=== PATIENT | male | born 1940 | race Caucasian/White ===

== ENCOUNTER 2020-04-04 23:53 | Inpatient (IN) | payer BC, MEDICARE ==
[2020-04-05 04:16] VITALS: BMI 19.7
[2020-04-05] MEDS ORDERED: Metoprolol Tartrate 50 MG TAB PO SCH (04:30)
[2020-04-05] MEDS ORDERED: Acetaminophen 325 MG TAB PO PRN (08:34)
[2020-04-05] MEDS ORDERED: Senokot S 8.6-50 MG TAB PO PRN (08:34)
[2020-04-05] MEDS ORDERED: Calcium Carbonate 500 MG ChewTAB PO PRN (08:34)
--- NOTE | 2020-04-05 08:42 | PDOC.HHP ---
Hospitalist HPI - History of Present Illness AMS - Transfer from [facility] History of Present Illness: Patient is an 80-year-old male who presents with altered mental status along with left knee swelling. Over the past 3 days he developed left knee swelling and warmth. He was unable to bear weight on left leg. Over the last 2 days he developed confusion. He has been feeling gen weak and fatigued. No fevers, cough , abdominal pain, dysuria, neck pain, shortness of breath, trauma or falls, or any other complaints. Per son, he has been sitting on chair x 2 days. His speech was lethargic with garbled speech. Son brought him to ER. His mentation started to improve after IVF at ER. In ER -arthrocentesis was done just concerning for gout vs septic arthritis of the left knee. No gas on x-ray. Patient will be treated for possible septic arthritis while awaiting cultures. Chest x-ray negative. He was found to have WBC of 20 k with elevated CRP. He was transferred here for neurology eval. NIH in ER was 5. COVID negative. I reviewed records from & in detail. ED Course: Initial Vital Signs: BP: (!) 179/91, Pulse: 100, Temperature: 99.6 F (37.6 C), Resp: 19, Weight: 137 lb (62.1 kg), SpO2: 97 % Vitals: BP: 168/68, Pulse: 100, Temperature: 99.6 F (37.6 C), Resp: 19, Weight: 137 lb (62.1 kg), SpO2: 97 % Medications: Orders Placed This Encounter Medications lidocaine-EPINEPHrine (XYLOCAINE W/EPI) 1 %-1:100,000 injection 3 mL 0.9% sodium chloride (NaCl) (NS) infusion 500 mL Order Specific Question: Reason for Hydration Answer: Dehydration 0.9% sodium chloride (NaCl) (NS) infusion 1,000 mL Order Specific Question: Reason for Hydration Answer: Dehydration cefTRIAXone (ROCEPHIN) 1 g in sodium chloride 0.9 % 50 mL IVPB-MBP vancomycin (VANCOCIN) 1,500 mg in 0.9% sodium chloride (NaCl) 300 mL IVPB aspirin chewable tablet 324 mg dexamethasone sod phos (DECADRON) 10 mg/mL injection 10 mg colchicine tablet 1.2 mg Hospitalist ROS - Review of Systems Constitutional: reports: weakness, malaise Cardiovascular: denies: chest pain, palpitations, orthopnea, paroxysmal noc. dyspnea, edema, light headedness, other Gastrointestinal: denies: nausea, vomiting, abdominal pain, diarrhea, constipation, melena, hematochezia, other Genitourinary: denies: dysuria, frequency, incontinence, hematuria, retention, other All other systems reviewed; all pertinent +/- noted in HPI/Subj - Medication Medications: Home meds: Aspirin [Ecotrin Low Strength] 81 mg PO DAILY 04/05/20 Gabapentin [Neurontin] 300 mg PO TID 04/05/20 Glucosamine Sulfate 500 mg PO DAILY 04/05/20 Lisinopril [Zestril] 2.5 mg PO DAILY 04/05/20 Metoprolol Tartrate [Lopressor] 50 mg PO BID-WM 04/05/20 Multivit-Min/FA/Lycopen/Lutein [Centrum Silver Tablet] 1 tab PO DAILY Omeprazole 20 mg PO BID 04/05/20 Simvastatin [Zocor] 20 mg PO HS 04/05/20 Hospitalist History - Past Medical History Source: patient, family Other Medical History: Past Medical History: HTN HLD Carotid stenosis Past Surgical History: APPENDECTOMY CAROTID STENT ROTATOR CUFF REPAIR VASECTOMY Allergies: Amlodipine Benazepril Social History: Never Smoker Drinks 14 Shots of liquor & 6 Cans of beer every week per ER recored Family history: No premature CAD DNR - verified with son Ralf [id number] - DPOA - Exam General Appearance: NAD, ill appearing Eye: PERRL, anicteric sclera ENT: normocephalic atraumatic, no oropharyngeal lesions, moist mucosa Neck: supple, symmetric, no JVD, no thyromegaly Heart: RRR, no gallops, no rubs, normal peripheral pulses Respiratory: no wheezes, no rales, no ronchi, normal chest expansion Gastrointestinal: soft, non-tender, non-distended, normal bowel sounds, no guarding, no rigidity Extremities: no cyanosis, no clubbing Extremities - other findings: Left knee tenderness/warmth. Congenital deformity of left forearm Neurological: cranial nerve grossly intact, normal sensation to touch, no focal deficits Psychiatric: normal affect, oriented to person, oriented to place, oriented to time, somnolent Psychiatric - other findings: slow to respond Hospitalist Results - Labs Result Diagrams: 04/05/20 08:58 04/05/20 08:58 Additional comment: Labs: Recent Results (from the past 24 hour(s)) Gram Stain Collection Time: 04/04/20 7:40 PM Result Value Ref Range GRAM STAIN SMALL AMOUNT WHITE BLOOD CELLS NO ORGANISMS SEEN Ammonia Collection Time: 04/04/20 7:46 PM Result Value Ref Range AMMONIA 19 11 - 35 umol/L CBC with Differential Collection Time: 04/04/20 7:46 PM Result Value Ref Range WBC 20.7 (H) 4.8 - 10.8 10*9/L RBC 4.58 (L) 4.70 - 6.10 10*12/L HEMOGLOBIN 15.0 14.0 - 18.0 g/dL HEMATOCRIT 44.4 42.0 - 52.0 % MCV 96.9 (H) 80.0 - 94.0 fL MCH 32.8 27.0 - 34.5 pg MCHC 33.8 32.0 - 36.5 g/dL RDW 12.4 11.0 - 15.0 % PLATELET COUNT 334 150 - 450 10*9/L MPV 10.1 7.4 - 12.0 fL GRAN % 84 % LYMPH % 6 % MONO % 9 % EOS % 0 % BASO % 0 % NRBC 0.0 0.0 - 0.9 /100 WBCs GRAN # 17.34 (H) 1.92 - 8.64 10*9/L LYMPH # 1.32 0.72 - 4.32 10*9/L MONO # 1.84 (H) 0.00 - 1.08 10*9/L EOS # 0.02 0.00 - 0.76 10*9/L BASO # 0.06 0.00 - 0.22 10*9/L ETOH Collection Time: 04/04/20 7:46 PM Result Value Ref Range ALCOHOL (SERUM/PLASMA) <10 0 mg/dL Creatine Kinase Collection Time: 04/04/20 7:46 PM Result Value Ref Range CK 1,386 (H) 0 - 225 [IU]/L Comprehensive Metabolic Panel Collection Time: 04/04/20 7:46 PM Result Value Ref Range GLUCOSE 122 (H) 70 - 100 mg/dL BUN 31 (H) 8 - 27 mg/dL CREATININE 1.63 (H) 0.60 - 1.60 mg/dL SODIUM 140 136 - 145 meq/L POTASSIUM 3.8 3.5 - 5.3 meq/L CHLORIDE 104 97 - 111 meq/L CARBON DIOXIDE 24 23 - 31 meq/L CALCIUM 9.7 8.6 - 10.5 mg/dL BILIRUBIN, TOTAL 1.2 0.2 - 1.2 mg/dL ALKALINE PHOSPHATASE 76 34 - 130 [IU]/L SGOT (AST) 42 (H) 0 - 40 [IU]/L SGPT (ALT) 29 0 - 68 [IU]/L PROTEIN, TOTAL 7.8 6.0 - 8.0 g/dL ALBUMIN 3.7 3.2 - 4.6 g/dL Procalcitonin Collection Time: 04/04/20 7:46 PM Result Value Ref Range PROCALCITONIN 0.71 (AB) <0.10 ng/mL C-Reactive Protein, High Sensitivity Collection Time: 04/04/20 7:46 PM Result Value Ref Range H. S. CRP 306.5 (AB) mg/L Lactic Acid, Plasma Collection Time: 04/04/20 7:46 PM Result Value Ref Range LACTIC ACID 1.5 0.5 - 2.0 mmol/L GFR-Est. Glomerular Filtration Rate Collection Time: 04/04/20 7:46 PM Result Value Ref Range NON-AFR. AMER. EGFR 39 (AB) AFR. AMER. EGFR 45 (AB) Uric Acid Collection Time: 04/04/20 7:46 PM Result Value Ref Range URIC ACID 5.6 2.4 - 7.9 mg/dL Coronavirus (CoVID-19), ODALYS Collection Time: 04/04/20 8:09 PM Result Value Ref Range CORONAVIRUS COVID-19 NOT DETECTED UDS Collection Time: 04/04/20 8:25 PM Result Value Ref Range AMPHETAMINE, LAB NEGATIVE ng/mL BARBITURATES NEGATIVE ng/mL BENZODIAZEPINES NEGATIVE ng/mL COCAINE NEGATIVE ng/mL OPIATES NEGATIVE ng/mL PHENCYCLIDINE NEGATIVE ng/mL [id number] NEGATIVE ng/mL ECSTASY NEGATIVE ng/mL Urinalysis, Routine Collection Time: 04/04/20 8:25 PM Result Value Ref Range COLOR, UA YELLOW YELLOW APPEARANCE CLEAR CLEAR-SLCLOUDY SPECIFIC GRAVITY, URINE 1.025 1.005 - 1.030 PH, UA 6.5 5.0 - 8.0 PROTEIN >=300 (AB) NEG,TRACE mg/dL GLUCOSE, UA NEG NEG KETONES 15 (AB) NEG BILIRUBIN, UA NEG NEG BLOOD, UA LARGE (AB) NEG NITRITE NEG NEG UROBILINOGEN 1.0 <2 [IU]/dL LEUKOCYTE ESTERASE NEG NEG RBC, URINE 1-2 0 - 2 /[HPF] WBC, URINE 0 0 - 2 /[HPF] MUCOUS OCC (AB) NONE /[HPF] SQUAMOUS EPITHEIAL RARE NONE, OCC /[HPF] BACTERIA FEW (AB) NONE /[HPF] Synovial Fluid Analysis Collection Time: 04/04/20 9:00 PM Result Value Ref Range SOURCE, SYN LEFT KNEE VOLUME, SYN 20.0 mL COLOR, SYN ORANGE (AB) BLOODY NO CLARITY, SYN OPAQUE (AB) VISCOSITY DECREASED (AB) RBC COUNT, SYN 10,000 /mcL WBC COUNT, SYN 13,900 /mcL SEGMENTED NEUTROPHILS, SYN 92 (H) 0 - 25 % MONONUCLEAR, SYN 8 % TOTAL CELLS COUNTED, SYN 100 CELLS CRYSTALS PRESENT (AB) BIREFRINGENCE NEGATIVE (AB) Radiology: CT Head wo Contrast Final Result IMPRESSION: No acute abnormality. Chronic small vessel ischemic changes. DICTATED 04/04/2020 20:48:36 BY:[id number] Hamilton Anthony [place] TRANSCRIBED 04/04/2020 20:48:36 BY: SIGNED 04/04/2020 20:51:44 BY:[id number] [facility] XR Knee 3 Views Right Final Result IMPRESSION: 1. No acute osseous abnormality the left knee DICTATED 04/04/2020 20:40:04 BY:[id number] Yasir Tarik TRANSCRIBED 04/04/2020 20:40:04 BY: SIGNED 04/04/2020 20:40:40 BY:[id number] [employer] Tarik XR Knee 3 Views Left Final Result IMPRESSION: 1. No acute osseous abnormality of the right knee DICTATED 04/04/2020 20:40:45 BY:[id number] Yasir Tarik TRANSCRIBED 04/04/2020 20:40:45 BY: SIGNED 04/04/2020 20:41:40 BY:[id number] [employer] Tarik XR Chest 1 View Final Result Impression: Unremarkable exam. - EKG Interpretation EKG: Reviewed by me - sinus rhythm - Radiology Interpretation CT scan - head Status: image reviewed by me Additional Comment: No acute process. Other Additional Comment: Knee XR - no fractures Hospitalist H&P A/P - Plan Plan: Toxic metabolic and encephalopathy - multifactorial Acute kidney injury Left knee swelling with crystals suspected gout. septic arthritis less likely Acute kidney injury due to dehydration Hypertension History of carotid stenosis Rhabdomyolysis Hyperlipidemia DO NOT RESUSCITATE Plan: Patient is currently admitted to medical floor CT brain was negative for acute findings. His mentation is gradually improving. Cont IV hydration Empiric Atbx - IV vancomycin and meropenem Monitor vancomycin level Await culture report from [facility] Consult neurology and infectious disease Ortho input for possible septic arthritis Resume selected home medications Hold MATT inhibitor due to acute kidney injury Hold statins due to rhabdomyolysis Physical therapy consultation The plan was discussed with the son in detail. HHC at md PT/OT
[2020-04-05] MEDS ORDERED: Meropenem 1 GM in Sodium Chloride 0.9% 100 ML IVPB SCH (08:45)
[2020-04-05] MEDS ORDERED: Prevnar 13-Val Conj/PF 0.5 ML SYRINGE IM ONE (09:00)
[2020-04-05] MEDS ORDERED: Famotidine 20 MG TAB PO SCH (09:00)
[2020-04-05 09:25] LABS: #Lymphocytes 0.8 thou/uL (1.20-3.40); #Monocytes 0.5 thou/uL (0.11-0.59); #Neutrophils 12.3 thou/uL (1.40-6.50); %Basophils 0.1 % (0.0-1.0); %Eosinophils 0.1 % (0.0-10.0); %Lymphocytes 5.9 % (21.0-51.0); %Monocytes 3.4 % (0.0-10.0); %Neutrophils 90.6 % (42.0-75.0); Hemoglobin 13.4 g/dL (14.0-18.0); Mean Corpuscular HGB CONC 32.5 g/dL (32.0-36.0); Mean Corpuscular Hemoglobin 33.3 pg (27.0-31.0); Platelet Count 285 thou/uL (130-400); RBC Distribution Width 11.4 % (11.5-14.5); Red Blood Cell (RBC) Count 4.03 mill/uL (4.70-6.10); White Blood Cell (WBC) Count 13.6 thou/uL (4.8-10.8)
[2020-04-05 09:29] LABS: Lactic Acid 0.9 mmol/L (0.5-2.2)
[2020-04-05] MEDS ORDERED: MEROPENEM 1 GM/50 ML 1 GM in Premix Bag 1 BAG IVPB SCH ×2 (09:30→12:00)
[2020-04-05 09:34] LABS: ALT (SGPT) 28 U/L (8-55); AST (SGOT) 37 U/L (5-34); Alkaline Phosphatase 68 U/L (40-110); Anion Gap 13 mmol/L (10-20); BUN (Urea Nitrogen) 37 mg/dL (8.4-25.7); Bilirubin, Total 0.7 mg/dL (0.2-1.2); CK (CPK) 707 U/L (30-200); CRP (Inflammatory) 26.67 mg/dL (= or < 0.5); Calc. Creatinine Clearance 31 mL/min (70-130); Calcium 8.4 mg/dL (7.8-10.44); Carbon Dioxide 21 mmol/L (23-31); Chloride 107 mmol/L (98-107); Estimated GFR-MDRD 41; Globulin 3.3 g/dL (2.4-3.5); Glucose 145 mg/dL (83-110); Magnesium 2.5 mg/dL (1.6-2.6); Phosphorus 3.8 mg/dL (2.3-4.7); Potassium 4.2 mmol/L (3.5-5.1); Protein, Total 6.3 g/dL (5.8-8.1); Sodium 137 mmol/L (136-145)
[2020-04-05 09:43] LABS: Troponin I 0.034 ng/mL (< 0.028)
--- NOTE | 2020-04-05 10:09 | ULT ---
EXAM: Bilateral lower extremity venous Doppler US HISTORY: bilateral lower extremity edema and pain FINDINGS: Grayscale, color-flow, Doppler evaluation, spectral analysis of the bilateral lower extremities venou s structures is performed with 2-D imaging. The bilateral common femoral, superficial femoral, popliteal, posterior tibial, proximal greater saphenous and profunda femoral veins are imaged. There is normal luminal compressibility, flow, and augmentation in the visualized deep venous structu res of the bilateral lower extremities. IMPRESSION: No evidence of a deep vein thrombosis in either lower extremity.
[2020-04-05] MEDS ORDERED: Vancomycin 1 GM in Premix Bag 1 BAG IVPB SCH (11:00)
[2020-04-05] MEDS ORDERED: Dextrose 5 %-0.45 % NaCl 1,000 ML IV SCH (11:30)
--- NOTE | 2020-04-05 12:49 | CON ---
NEUROLOGY CONSULTATION DATE OF CONSULTATION: 04/05/2020 REASON FOR CONSULTATION: Altered mental status, transferred from [facility]. HISTORY OF PRESENT ILLNESS: Mr. Isabel Wynne is an 80-year-old male with history significant for hypertension, hyperlipidemia, carotid artery stenosis status post stent, transferred from [facility] because of altered mental status associated with left knee swelling. According to the patient, for the last 3 days, he has swelling of the left knee with warmth and was unable to bear weight on his left leg. However, since the last 2 days, he also developed confusion and generalized weakness, but denies nausea, vomiting, focal weakness, focal paresthesias, headache, chest pain, abdominal pain, or loss of consciousness or loss of vision. Per son, he has been sitting in the chair and his speech was garbled and he was lethargic, so he was brought to the emergency room at [facility], where arthrocentesis was done because there was a concern about gout of the left knee , and then there was a concern about possible cellulitis, so he was treated for possible cellulitis and was transferred here to Neurology for further evaluation of altered mental status. REVIEW OF SYSTEMS: All 10 systems were reviewed and were negative except the positive and negative mentioned in the HPI. HOME MEDICATIONS: 1. Aspirin 81 mg daily. 2. Gabapentin 300 mg three times a day. 3. Glucosamine sulfate 500 mg twice daily. 4. Lisinopril 2.5 mg p.o. daily. 5. Metoprolol 50 mg twice daily. 6. Multivitamin one tablet daily. 7. Centrum Silver one tablet p.o. daily. 8. Omeprazole 20 mg twice daily. 9. Simvastatin 20 mg daily. PAST MEDICAL HISTORY: Hypertension, hyperlipidemia, carotid artery stenosis. PAST SURGICAL HISTORY: Appendectomy, carotid stenting, rotator cuff repair, vasectomy. ALLERGIES: AMLODIPINE AND BENAZEPRIL. SOCIAL HISTORY: The patient denies smoking. Drinks 14 shots of liquor and 6 cans of beer every week according to the records. FAMILY HISTORY: No family history of coronary artery disease. PHYSICAL EXAMINATION: 140/80 66 16 GENERAL APPEARANCE: NAD. HEENT: Normocephalic and atraumatic. CVS: Regular rate and rhythm. CHEST: Clear. ABDOMEN: Soft. NECK: Supple. NEUROLOGIC: Mental status, the patient is alert and oriented to person, place, and year. Speech is clear. Motor; muscle, tone, and bulk are normal. Strength, moving all 4 extremities equally and symmetrically. Sensory, intact. Cerebellar, finger-nose testing intact. Gait deferred due to the patient's safety reason. Cranial nerves 2 through 12 intact. DATA REVIEWED: I reviewed the labs, which were significant for anemia, hemoglobin of 13.4, hematocrit 41.3, and WBCs were 13.6. He also had acute kidney injury with BUN of 37 and creatinine of 1.62, and hyperglycemia at 145. EKG showed normal sinus rhythm. Head CT reviewed, which was negative for acute intracranial pathology. 04/05/20 08:58 Additional comment: Labs: Recent Results (from the past 24 hour(s)) Gram Stain Collection Time: 04/04/20 7:40 PM Result Value Ref Range GRAM STAIN SMALL AMOUNT WHITE BLOOD CELLS NO ORGANISMS SEEN Ammonia Collection Time: 04/04/20 7:46 PM Result Value Ref Range AMMONIA 19 11 - 35 umol/L CBC with Differential Collection Time: 04/04/20 7:46 PM Result Value Ref Range WBC 20.7 (H) 4.8 - 10.8 10*9/L RBC 4.58 (L) 4.70 - 6.10 10*12/L HEMOGLOBIN 15.0 14.0 - 18.0 g/dL HEMATOCRIT 44.4 42.0 - 52.0 % MCV 96.9 (H) 80.0 - 94.0 fL MCH 32.8 27.0 - 34.5 pg MCHC 33.8 32.0 - 36.5 g/dL RDW 12.4 11.0 - 15.0 % PLATELET COUNT 334 150 - 450 10*9/L MPV 10.1 7.4 - 12.0 fL GRAN % 84 % LYMPH % 6 % MONO % 9 % EOS % 0 % BASO % 0 % NRBC 0.0 0.0 - 0.9 /100 WBCs GRAN # 17.34 (H) 1.92 - 8.64 10*9/L LYMPH # 1.32 0.72 - 4.32 10*9/L MONO # 1.84 (H) 0.00 - 1.08 10*9/L EOS # 0.02 0.00 - 0.76 10*9/L BASO # 0.06 0.00 - 0.22 10*9/L ETOH Collection Time: 04/04/20 7:46 PM Result Value Ref Range ALCOHOL (SERUM/PLASMA) <10 0 mg/dL Creatine Kinase Collection Time: 04/04/20 7:46 PM Result Value Ref Range CK 1,386 (H) 0 - 225 [IU]/L Comprehensive Metabolic Panel Collection Time: 04/04/20 7:46 PM Result Value Ref Range GLUCOSE 122 (H) 70 - 100 mg/dL BUN 31 (H) 8 - 27 mg/dL CREATININE 1.63 (H) 0.60 - 1.60 mg/dL SODIUM 140 136 - 145 meq/L POTASSIUM 3.8 3.5 - 5.3 meq/L CHLORIDE 104 97 - 111 meq/L CARBON DIOXIDE 24 23 - 31 meq/L CALCIUM 9.7 8.6 - 10.5 mg/dL BILIRUBIN, TOTAL 1.2 0.2 - 1.2 mg/dL ALKALINE PHOSPHATASE 76 34 - 130 [IU]/L SGOT (AST) 42 (H) 0 - 40 [IU]/L SGPT (ALT) 29 0 - 68 [IU]/L PROTEIN, TOTAL 7.8 6.0 - 8.0 g/dL ALBUMIN 3.7 3.2 - 4.6 g/dL Procalcitonin Collection Time: 04/04/20 7:46 PM Result Value Ref Range PROCALCITONIN 0.71 (AB) <0.10 ng/mL C-Reactive Protein, High Sensitivity Collection Time: 04/04/20 7:46 PM Result Value Ref Range H. S. CRP 306.5 (AB) mg/L Lactic Acid, Plasma Collection Time: 04/04/20 7:46 PM Result Value Ref Range LACTIC ACID 1.5 0.5 - 2.0 mmol/L GFR-Est. Glomerular Filtration Rate Collection Time: 04/04/20 7:46 PM Result Value Ref Range NON-AFR. AMER. EGFR 39 (AB) AFR. AMER. EGFR 45 (AB) Uric Acid Collection Time: 04/04/20 7:46 PM Result Value Ref Range URIC ACID 5.6 2.4 - 7.9 mg/dL Coronavirus (CoVID-19), ODALYS Collection Time: 04/04/20 8:09 PM Result Value Ref Range CORONAVIRUS COVID-19 NOT DETECTED UDS Collection Time: 04/04/20 8:25 PM Result Value Ref Range AMPHETAMINE, LAB NEGATIVE ng/mL BARBITURATES NEGATIVE ng/mL BENZODIAZEPINES NEGATIVE ng/mL COCAINE NEGATIVE ng/mL OPIATES NEGATIVE ng/mL PHENCYCLIDINE NEGATIVE ng/mL [id number] NEGATIVE ng/mL ECSTASY NEGATIVE ng/mL Urinalysis, Routine Collection Time: 04/04/20 8:25 PM Result Value Ref Range COLOR, UA YELLOW YELLOW APPEARANCE CLEAR CLEAR-SLCLOUDY SPECIFIC GRAVITY, URINE 1.025 1.005 - 1.030 PH, UA 6.5 5.0 - 8.0 PROTEIN >=300 (AB) NEG,TRACE mg/dL GLUCOSE, UA NEG NEG KETONES 15 (AB) NEG BILIRUBIN, UA NEG NEG BLOOD, UA LARGE (AB) NEG NITRITE NEG NEG UROBILINOGEN 1.0 <2 [IU]/dL LEUKOCYTE ESTERASE NEG NEG RBC, URINE 1-2 0 - 2 /[HPF] WBC, URINE 0 0 - 2 /[HPF] MUCOUS OCC (AB) NONE /[HPF] SQUAMOUS EPITHEIAL RARE NONE, OCC /[HPF] BACTERIA FEW (AB) NONE /[HPF] Synovial Fluid Analysis Collection Time: 04/04/20 9:00 PM Result Value Ref Range SOURCE, SYN LEFT KNEE VOLUME, SYN 20.0 mL COLOR, SYN ORANGE (AB) BLOODY NO CLARITY, SYN OPAQUE (AB) VISCOSITY DECREASED (AB) RBC COUNT, SYN 10,000 /mcL WBC COUNT, SYN 13,900 /mcL SEGMENTED NEUTROPHILS, SYN 92 (H) 0 - 25 % MONONUCLEAR, SYN 8 % TOTAL CELLS COUNTED, SYN 100 CELLS CRYSTALS PRESENT (AB) BIREFRINGENCE NEGATIVE (AB) Radiology: CT Head wo Contrast Final Result IMPRESSION: No acute abnormality. Chronic small vessel ischemic changes. DICTATED 04/04/2020 20:48:36 BY:[id number] Lisa Cruz [place] TRANSCRIBED 04/04/2020 20:48:36 BY: SIGNED 04/04/2020 20:51:44 BY:[id number] Lisa Cruz [place] XR Knee 3 Views Right Final Result IMPRESSION: 1. No acute osseous abnormality the left knee DICTATED 04/04/2020 20:40:04 BY:[id number] Yasir Tarik TRANSCRIBED 04/04/2020 20:40:04 BY: SIGNED 04/04/2020 20:40:40 BY:[id number] Yasir Tarik XR Knee 3 Views Left Final Result IMPRESSION: 1. No acute osseous abnormality of the right knee DICTATED 04/04/2020 20:40:45 BY:[id number] Yasir Tarik TRANSCRIBED 04/04/2020 20:40:45 BY: SIGNED 04/04/2020 20:41:40 BY:[id number] Yasir Tarik XR Chest 1 View Final Result Impression: Unremarkable exam. ASSESSMENT AND PLAN: Mr. Ricci Hall is consulted for altered mental status. Altered mental status seems to be multifactorial secondary to toxic metabolic encephalopathy due to acute kidney injury versus infectious etiology due to left knee swelling with concern about septic arthritis. The patient has no focal deficits, so intracranial process seems less likely. Head CT reviewed, which was negative for acute intracranial pathology. EEG was completed . Results pending. Continue neuro checks every 4 hours. Continue aspirin and statin for secondary stroke prevention since the patient has risk factors. MRI of the brain when stable. PT/OT/Speech. Continue home medications, strict control of blood pressure and blood glucose. Continue medical management per Primary Team. We will continue to follow. Thank you for the consult. Job ID: [id number] [facility]al[facility]
[2020-04-05] MEDS ORDERED: Aspirin 81 mg Enteric Coated Tablet PO SCH (13:00)
[2020-04-05 13:37] LABS: Troponin I 0.023 ng/mL (< 0.028)
[2020-04-05] MEDS: Folic Acid 1 MG TAB PO SCH (13:50)
[2020-04-05] MEDS: Thiamine 100 MG TAB PO SCH (13:50)
[2020-04-05] MEDS: Acetaminophen 325 MG TAB PO SCH ×2 (13:50→21:06)
[2020-04-05] MEDS: Multivit, Therapeutic 1 TAB PO SCH (13:50)
--- NOTE | 2020-04-05 14:34 | CON ---
DATE OF CONSULTATION: 04/05/2020 REASON FOR CONSULTATION: Left knee inflammatory arthropathy. 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 He lives with a girlfriend and lives in [place]. On the day of admission, he developed confusional state, so he was brought in, given broad-spectrum coverage. An arthrocentesis was done at [facility] in [place]. He was transferred to this hospital. Right now, he is awake, alert, oriented. Eating lunch. Denies headaches. No shortness of breath. No abdominal pain or diarrhea. No genitourinary symptoms. The pain in the left knee has improved after arthrocentesis. PAST MEDICAL HISTORY: 1. Hyperlipidemia. 2. Hypertension. SURGICAL HISTORY: 1. Endarterectomy. 2. Vasectomy. 3. Appendectomy. 4. Rotator cuff repair. SOCIAL HISTORY: Drinks daily. Lives with girlfriend. No smoking. ALLERGIES: NORVASC AND BENAZEPRIL. MEDICATIONS: 1. Aspirin. 2. Dextrose. 3. Meropenem. 4. Vancomycin. 5. Thiamine. PHYSICAL EXAMINATION: VITAL SIGNS: He has been afebrile, BP 170/75, pulse 63, respirations 16, and O2 saturation 96. GENERAL: Appears in no distress. SKIN: His left knee is painted with Betadine for the previous procedure. Peripheral IV access. Voiding in the diaper. No lymphadenopathy. HEENT: Ocular movements conjugate. Oral cavity with numerous missing teeth. NECK: Supple. No jugular vein distention. LUNGS: Symmetric, clear breath sounds. HEART: S1 and S2. Regular rate. No S3 or S4. ABDOMEN: Soft, not distended or tender. No ascites. No bladder distention. No genital abnormalities. EXTREMITIES: The left knee is not as swollen as previously. The range of motion is a bit improved. Pulses are 1+ in dorsalis pedis. NEUROLOGIC: Awake and oriented. Little bit sluggish with responses, but he follows commands, able to feed himself. LABORATORY DATA: White cell count 13.6, hemoglobin 13.4, platelets 285, and 90% neutrophils. Creatinine 1.62 with no prior visits to compare. Liver profile with AST 37, ALT 28, and alkaline phosphatase 68. CK 707. CRP 26. Albumin 3.0. We reviewed the data from [facility] in [place] and he did have arthrocentesis and it showed 13,000 wbc's in the synovial fluid, was positive for uric acid or monosodium urate crystals in the sample. Venogram done here was negative for DVT. ASSESSMENT: 1. Hypertension. 2. Excessive alcoholic beverage use. 3. Monoarticular gout, left knee. PLAN: At this point, discontinue antimicrobials and switch him to oral colchicine. Continue monitoring cultures until final results are provided. Job ID: [id number]
--- NOTE | 2020-04-05 15:34 | EEG ---
DATE OF SERVICE: 04/05/2020 ATTENDING PHYSICIAN: Ni St MD This EEG was performed using 24-channel [employer] video digital EEG machine with 24- disk electrodes. This was an extended 2 hours 7 minutes of inpatient video EEG recording. Digital analysis of the EEG was done for spike and seizure detection , which revealed no abnormalities. BACKGROUND: The posterior background rhythm is 8.5 to 9 hertz as well as the background rhythm attenuates with eye opening and enhances with eye closure. HYPERVENTILATION: Not performed. PHOTIC STIMULATION: No significant response seen with photic stimulation. SLEEP: Drowsiness and sleep are observed. EEG DIAGNOSIS: Occasional irregular theta activity seen during the recording. CLINICAL INTERPRETATION: This EEG is consistent with mild generalized nonspecific cerebral dysfunction. No ictal or interictal epileptiform abnormalities seen during the recording. Job ID: [id number] [facility]
[2020-04-05] MEDS ORDERED: Lorazepam 0.5 MG TAB PO PRN (16:43)
[2020-04-05] MEDS: Gabapentin 100 MG CAP PO SCH (21:06)
[2020-04-05] MEDS: Colchicine 0.6 MG TAB PO SCH (21:06)
[2020-04-05] MEDS: Metoprolol Tartrate 50 MG TAB PO SCH (21:06)
[2020-04-05] MEDS: Dextrose 5 %-0.45 % NaCl 1,000 ML IV SCH (23:53)
[2020-04-06] MEDS: hydrALAZINE 20 MG/ML VIAL SLOW IVP PRN (04:32)
[2020-04-06 06:08] LABS: ALT (SGPT) 66 U/L (8-55); AST (SGOT) 72 U/L (5-34); Albumin 3.1 g/dL (3.4-4.8); Alkaline Phosphatase 79 U/L (40-110); Anion Gap 13 mmol/L (10-20); BUN (Urea Nitrogen) 42 mg/dL (8.4-25.7); Bilirubin, Total 0.6 mg/dL (0.2-1.2); CK (CPK) 447 U/L (30-200); Calc. Creatinine Clearance 36 mL/min (70-130); Calcium 8.1 mg/dL (7.8-10.44); Carbon Dioxide 17 mmol/L (23-31); Chloride 110 mmol/L (98-107); Estimated GFR-MDRD 49; Globulin 3.3 g/dL (2.4-3.5); Glucose 118 mg/dL (83-110); Magnesium 2.4 mg/dL (1.6-2.6); Phosphorus 2.4 mg/dL (2.3-4.7); Potassium 3.9 mmol/L (3.5-5.1); Protein, Total 6.4 g/dL (5.8-8.1); Sodium 136 mmol/L (136-145)
[2020-04-06 06:14] LABS: Band 2 % (5-11); Hemoglobin 13.2 g/dL (14.0-18.0); Hypochromia SLIGHT = 6-15 cells (100X) (0-5/hpf); Lymphocytes 6 % (21-51); MDiff Complete? YES; Mean Corpuscular HGB CONC 30.7 g/dL (32.0-36.0); Mean Corpuscular Hemoglobin 31.4 pg (27.0-31.0); Mean Platelet Volume 8.3 fL (7.4-10.4); Monocytes 8 % (0-10); Neutrophil 84 % (42-75); Platelet Count 316 thou/uL (130-400); Platelet Morphology Comment Appears Adequate; RBC Distribution Width 11.4 % (11.5-14.5); Red Blood Cell (RBC) Count 4.21 mill/uL (4.70-6.10); White Blood Cell (WBC) Count 21.7 thou/uL (4.8-10.8)
[2020-04-06] MEDS ORDERED: Dextrose 5 %-0.45 % NaCl 1,000 ML IV SCH (08:48)
[2020-04-06] MEDS: Colchicine 0.6 MG TAB PO SCH ×2 (08:54→21:45)
[2020-04-06] MEDS: Aspirin 81 mg Enteric Coated Tablet PO SCH (08:55)
[2020-04-06] MEDS: Metoprolol Tartrate 50 MG TAB PO SCH ×2 (08:56→21:45)
[2020-04-06] MEDS: Thiamine 100 MG TAB PO SCH (08:57)
[2020-04-06] MEDS: Folic Acid 1 MG TAB PO SCH (08:57)
[2020-04-06] MEDS: Multivit, Therapeutic 1 TAB PO SCH (08:57)
[2020-04-06] MEDS: Gabapentin 100 MG CAP PO SCH ×3 (08:57→21:44)
[2020-04-06] MEDS: Heparin 5,000 UNITS/ML VIAL SC SCH ×2 (08:57→21:45)
[2020-04-06] MEDS: Dextrose 5 %-0.45 % NaCl 1,000 ML IV SCH (08:59)
[2020-04-06] MEDS ORDERED: GLUCOSAMINE SULFATE 500 MG PO SCH (09:00)
[2020-04-06] MEDS ORDERED: Non-Formulary Item 1 EACH (Multivit-Min/Fa/Lycopen/Lutein [Centrum Silver Tablet] 1 TAB) PO SCH (09:00)
--- NOTE | 2020-04-06 12:26 | CON ---
DATE OF CONSULTATION: 04/05/2020 REQUESTING PHYSICIAN: Dr. Bertrand Andre. CONSULTING PHYSICIAN: Dr. Jorge Cordero. REASON FOR CONSULTATION: Left knee swelling. BRIEF CLINICAL HISTORY: Ricci is an 80-year-old male, who was admitted by the Medicine team on 04/05/2020 after he was found unresponsive. He was seen originally in the [facility] in [place] and transferred here after an arthrocentesis was performed. He was admitted to the Medicine team, and a Neurology consult has been obtained. Our service was consulted for evaluation of a swollen left knee, and the laboratory evaluation has already demonstrated negative birefringent crystals on microscopy consistent with gouty arthritis. The patient tells me he has had a history of gout, but he does not recall the circumstances of his unresponsiveness. This is still a mystery to him. PAST MEDICAL HISTORY: 1. Hypertension. 2. Hyperlipidemia. PAST SURGICAL HISTORY: 1. Appendectomy. 2. Rotator cuff repair. 3. Endarterectomy. MEDICATIONS: 1. Aspirin. 2. Meropenem. 3. Vancomycin. 4. Thiamine. ALLERGIES: NORVASC AND BENAZEPRIL. SOCIAL HISTORY: He lives with his girlfriend in [place]. He denies any tobacco use, but consumes ethanol on daily basis. PHYSICAL EXAMINATION: Visual inspection of left knee demonstrates he did have about trace to one effusion over the left knee, it is nontender. His range of motion is slightly limited, but he can flex and extend. There is no flexion contracture. Stable to varus and valgus stressing. Drawer is negative. Not exquisitely tender, I can palpate, but ballottement is positive. He is neurovascularly intact in the left lower extremity. There is no malformation or deformity of the extremity. He is neurovascularly intact. LABORATORY DATA: Arthrocentesis demonstrated negative birefringent crystals consistent with monosodium urate and traditional gout. 13,000 white blood cells were noted in the aspirate as well. IMPRESSION: Left knee gouty arthritis with effusion. PLAN: No surgical recommendation at this time. Go ahead and treat medically with colchicine. We will follow up with the patient tomorrow just for clinical checkup, make sure his knee is still stable and without any significant increase in pain. Job ID: [id number]
--- NOTE | 2020-04-06 14:34 | PDOC.HOSPP ---
- Subjective Encounter Date: 04/06/20 Subjective: NEUROLOGY PROGRESS NOTE Patient awake and alert with no acute issues overnight. - Objective Vital Signs & Weight: Vital Signs (12 hours) Temp Pulse Resp BP BP BP Pulse Ox 04/06/20 12:00 97.8 F 175/70 H 04/06/20 11:28 97.8 F 59 L 18 175/70 H 100 04/06/20 07:16 98.7 F 89 20 155/87 H 99 04/06/20 04:32 67 191/85 H 04/06/20 04:30 97.5 F L 73 18 153/74 H 157/71 H 96 Weight Weight 133 lb 6.075 oz I&O: 04/05/20 04/06/20 04/07/20 06:59 06:59 06:59 Intake Total 638 762 5620 Output Total 75 Balance 163 304 5794 Result Diagrams: 04/06/20 05:13 04/06/20 05:13 Radiology Reviewed by me: Yes EKG Reviewed by me: Yes Hospitalist ROS - Review of Systems Constitutional: denies: fever, chills, sweats, weakness, malaise, other Eyes: denies: pain, vision change, conjunctivae inflammation, eyelid inflammation, redness, other ENT: denies: ear pain, ear discharge, nose pain, nose discharge, nose congestion , mouth pain, mouth swelling, throat pain, throat swelling, other Respiratory: denies: cough, dry, shortness of breath, hemoptysis, SOB with excertion, pleuritic pain, sputum, wheezing, other Cardiovascular: denies: chest pain, palpitations, orthopnea, paroxysmal noc. dyspnea, edema, light headedness, other Gastrointestinal: denies: nausea, vomiting, abdominal pain, diarrhea, constipation, melena, hematochezia, other Genitourinary: denies: dysuria, frequency, incontinence, hematuria, retention, other Musculoskeletal: reports: leg pain. denies: neck pain, shoulder pain, arm pain , back pain, hand pain, foot pain, other Skin: denies: rash, lesions, justin, bruising, other Neurological: reports: confusion. denies: weakness, numbness, incoordination, change in speech, seizures, other - Medication Medications: Active Medications Generic Name Dose Route Start Last Admin Trade Name Freq PRN Reason Stop Dose Admin Aspirin 81 mg 04/06/20 09:00 04/06/20 08:55 Ecotrin PO 81 mg DAILY HECTOR Administration Colchicine 0.6 mg 04/05/20 21:00 04/06/20 08:54 Colchicine PO 0.6 mg BID HECTOR Administration Folic Acid 1 mg 04/05/20 09:00 04/06/20 08:57 Folvite PO 1 mg DAILY HECTOR Administration Gabapentin 100 mg 04/05/20 21:00 04/06/20 08:57 Neurontin PO 100 mg TID HECTOR Administration Heparin Sodium (Porcine) 5,000 units 04/06/20 09:00 04/06/20 08:57 Heparin SC 5,000 units BID HECTOR Administration Hydralazine HCl 10 mg 04/05/20 19:27 04/06/20 04:32 Apresoline SLOW IVP 10 mg Q4H PRN Administration SBP GREATER THAN 160 Dextrose/Sodium Chloride 1,000 mls @ 30 mls/hr 04/06/20 08:48 04/06/20 09:12 D5 1/2 Ns IV 1,000 mls .Q24H HECTOR Administration Metoprolol Tartrate 50 mg 04/05/20 21:00 04/06/20 08:56 Lopressor PO 50 mg BID HECTOR Administration Multivitamins 1 tab 04/05/20 09:00 04/06/20 08:57 Theragran PO 1 tab DAILY HECTOR Administration Pantoprazole Sodium 40 mg 04/06/20 09:00 04/06/20 08:57 Protonix PO 40 mg DAILY HECTOR Administration Thiamine HCl 100 mg 04/05/20 09:00 04/06/20 08:57 Thiamine PO 100 mg DAILY HECTOR Administration - Exam General Appearance: awake alert Eye: PERRL ENT: normocephalic atraumatic Neck: supple Heart: RRR Respiratory: CTAB Gastrointestinal: soft Extremities: no cyanosis Skin: normal turgor Neurological: no focal deficits, no new deficit Musculoskeletal: normal tone, normal strength Psychiatric: normal affect, normal behavior, A&O x 3, oriented to person, oriented to place, oriented to time Hosp A/P (1) AMS (altered mental status) Code(s): R41.82 - ALTERED MENTAL STATUS, UNSPECIFIED Status: Acute (2) Hypertension Code(s): I10 - ESSENTIAL (PRIMARY) HYPERTENSION Status: Acute - Plan PT/OT, speech therapy, DVT proph w/SCDs 80 year old consulted by neurology for altered mental status. Altered mental status seems multifactorial due to infectious or metabolic etiology. Intracranial process is also in the differential. Patient is now alert and oriented x 4. EEG reviewed and was negative for seizure activity. Head CT unremarkable. Consider MRI brain when stable. Neurochecks every 4 hours. Continue home medications. PT/OT Consider medical management per primary team and ID. Plan discussed with the patient.
--- NOTE | 2020-04-06 17:18 | PRG ---
DATE OF SERVICE: 04/06/2020 SUBJECTIVE: Feeling better, still with moderate pain in the left knee, has not tried to walk yet. No shortness of breath or abdominal pain. Had some diarrhea, probably from colchicine. OBJECTIVE: VITAL SIGNS: He is afebrile, BP 180/70, pulse 62, and respirations 16. HEENT: His conjunctivae are a little bit hyperemic. He does not have signs of DTs yet. LUNGS: Clear. HEART: S1 and S2. Regular rate. ABDOMEN: Soft. LABORATORY DATA: White cell count 21.7, hemoglobin 13, and platelets 316. Creatinine 1.4, which is better than admission. AST 72 and ALT 66. ASSESSMENT AND DISCUSSION: 1. Hypertension. 2. Alcoholism. 3. Monoarticular gout. He may be developing delirium tremens, but the cultures thus far at [facility] are negative and that confirms that his problem is gouty knee arthritis rather than infection. Job ID: [id number]
[2020-04-06] MEDS ORDERED: cloNIDine 0.1 MG TAB PO PRN (17:32)
[2020-04-06] MEDS ORDERED: BEER 1 CAN PO SCH (17:45)
--- NOTE | 2020-04-06 18:06 | PDOC.HOSPP ---
- Subjective Encounter Date: 04/06/20 Encounter Time: 18:06 Subjective: Patient seen and examined for altered mentation with left knee pain. Denies any fever or chills. Mentation has significantly improved no chest pain shortness of breath nausea vomiting reported patient had 2-3 episodes of loose stool probably due to colchicine. Denies any other focal neurologic deficit. - Objective Vital Signs & Weight: Vital Signs (12 hours) Temp Pulse Resp BP BP Pulse Ox 04/06/20 16:00 97.9 F 62 16 187/77 H 98 04/06/20 12:00 97.8 F 175/70 H 04/06/20 11:28 97.8 F 59 L 18 175/70 H 100 04/06/20 07:16 98.7 F 89 20 155/87 H 99 Weight Weight 133 lb 6.075 oz I&O: 04/05/20 04/06/20 04/07/20 06:59 06:59 06:59 Intake Total 071 233 2715 Output Total 75 Balance 858 337 3826 Result Diagrams: 04/06/20 05:13 04/06/20 05:13 Additional Labs: Laboratory Tests 04/06/20 04/06/20 05:13 05:13 Vitamin B12 466 Folate 17.80 Radiology Reviewed by me: Yes (Doppler was negative for DVT in lower extremity) Hospitalist ROS - Review of Systems Cardiovascular: denies: chest pain, palpitations, orthopnea, paroxysmal noc. dyspnea, edema, light headedness, other Gastrointestinal: denies: nausea, vomiting, abdominal pain, diarrhea, constipation, melena, hematochezia, other - Medication Medications: Active Medications Generic Name Dose Route Start Last Admin Trade Name Manas PRN Reason Stop Dose Admin Acetaminophen 650 mg 04/05/20 08:34 04/06/20 16:00 Tylenol PO 650 mg Q4H PRN Administration Headache/Fever/Mild Pain (1-3) Aspirin 81 mg 04/06/20 09:00 04/06/20 08:55 Ecotrin PO 81 mg DAILY HECTOR Administration Colchicine 0.6 mg 04/05/20 21:00 04/06/20 08:54 Colchicine PO 0.6 mg BID HECTOR Administration Folic Acid 1 mg 04/05/20 09:00 04/06/20 08:57 Folvite PO 1 mg DAILY HECTOR Administration Heparin Sodium (Porcine) 5,000 units 04/06/20 09:00 04/06/20 08:57 Heparin SC 5,000 units BID HECTOR Administration Hydralazine HCl 10 mg 04/05/20 19:27 04/06/20 04:32 Apresoline SLOW IVP 10 mg Q4H PRN Administration SBP GREATER THAN 160 Metoprolol Tartrate 50 mg 04/05/20 21:00 04/06/20 08:56 Lopressor PO 50 mg BID HECTOR Administration Multivitamins 1 tab 04/05/20 09:00 04/06/20 08:57 Theragran PO 1 tab DAILY HECTOR Administration Pantoprazole Sodium 40 mg 04/06/20 09:00 04/06/20 08:57 Protonix PO 40 mg DAILY HECTOR Administration Thiamine HCl 100 mg 04/05/20 09:00 04/06/20 08:57 Thiamine PO 100 mg DAILY HECTOR Administration - Exam General Appearance: NAD Neck: supple, symmetric, no JVD, no thyromegaly Heart: RRR, no gallops, no rubs, normal peripheral pulses Respiratory: no wheezes, no rales, no ronchi, normal chest expansion Gastrointestinal: non-tender, non-distended, normal bowel sounds, no guarding, no rigidity Extremities: no cyanosis, no clubbing, no edema Neurological: no new deficit Psychiatric: normal affect, A&O x 3 Hosp A/P - Plan DVT proph w/SCDs Toxic metabolic and encephalopathy - multifactorial AURY on CKD 3/dehydrationimproving Left knee swelling with crystals due to acute gout gout. septic arthritis less likely Hypertension -uncontrolled History of carotid stenosis Rhabdomyolysis Hyperlipidemia DO NOT RESUSCITATE Plan: 04/06 Mentation is significantly improving Renal function has improved Continue metoprolol Add hydralazine due to uncontrolled blood pressure Add clonidine as needed for elevated blood pressure Continue thiamine folic acid and multivitamin Monitor for alcohol withdrawal CK is improving MATT inhibitor on hold due to AURY Increase gabapentin to 200 mg 3 times a day Discontinue IV fluids Blood cultures are pending at [facility]. Recheck labs in a.m. Add 1 beer every afternoon due to high risk of alcohol withdrawal Continue physical therapy occupational therapy evaluation industrial relations manager consultation for home health care versus inpatient rehab evaluation. Called son with no answer [phone]. Both the numbers on the face sheet are probably incorrect.
[2020-04-06] MEDS ORDERED: Loperamide HCl 2 MG CAP PO PRN (18:08)
[2020-04-06] MEDS ORDERED: Lisinopril 2.5 MG TAB PO SCH (21:00)
[2020-04-06] MEDS: Saccharomyces boulardii 250 MG CAP PO SCH (21:43)
[2020-04-06] MEDS: hydrALAZINE 25 MG TAB PO SCH (21:44)
[2020-04-07 06:07] LABS: #Eosinphils 0.1 thou/uL (0.0-0.7); #Lymphocytes 1.7 thou/uL (1.20-3.40); #Monocytes 1.3 thou/uL (0.11-0.59); #Neutrophils 7.7 thou/uL (1.40-6.50); %Eosinophils 0.7 % (0.0-10.0); %Lymphocytes 15.9 % (21.0-51.0); %Monocytes 11.6 % (0.0-10.0); %Neutrophils 71.9 % (42.0-75.0); Mean Corpuscular HGB CONC 32.2 g/dL (32.0-36.0); Mean Corpuscular Hemoglobin 33.1 pg (27.0-31.0); Mean Platelet Volume 8.8 fL (7.4-10.4); Platelet Count 303 thou/uL (130-400); RBC Distribution Width 11.4 % (11.5-14.5); Red Blood Cell (RBC) Count 3.64 mill/uL (4.70-6.10); White Blood Cell (WBC) Count 10.8 thou/uL (4.8-10.8)
[2020-04-07 06:30] LABS: ALT (SGPT) 244 U/L (8-55); AST (SGOT) 172 U/L (5-34); Albumin 2.7 g/dL (3.4-4.8); Alkaline Phosphatase 79 U/L (40-110); Anion Gap 9 mmol/L (10-20); BUN (Urea Nitrogen) 31 mg/dL (8.4-25.7); Bilirubin, Total 0.6 mg/dL (0.2-1.2); Calc. Creatinine Clearance 38 mL/min (70-130); Calcium 7.6 mg/dL (7.8-10.44); Carbon Dioxide 23 mmol/L (23-31); Chloride 109 mmol/L (98-107); Estimated GFR-MDRD 52; Globulin 2.7 g/dL (2.4-3.5); Glucose 290 mg/dL (83-110); Magnesium 2.3 mg/dL (1.6-2.6); Phosphorus 2.2 mg/dL (2.3-4.7); Potassium 3.2 mmol/L (3.5-5.1); Protein, Total 5.4 g/dL (5.8-8.1); Sodium 138 mmol/L (136-145)
[2020-04-07] MEDS: Gabapentin 100 MG CAP PO SCH ×3 (08:21→20:03)
[2020-04-07] MEDS: Multivit, Therapeutic 1 TAB PO SCH (08:21)
[2020-04-07] MEDS: Aspirin 81 mg Enteric Coated Tablet PO SCH (08:22)
[2020-04-07] MEDS: Colchicine 0.6 MG TAB PO SCH ×2 (08:22→20:03)
[2020-04-07] MEDS: Folic Acid 1 MG TAB PO SCH (08:22)
[2020-04-07] MEDS: Thiamine 100 MG TAB PO SCH (08:23)
[2020-04-07] MEDS: hydrALAZINE 25 MG TAB PO SCH ×2 (08:23→20:03)
[2020-04-07] MEDS: Metoprolol Tartrate 50 MG TAB PO SCH ×2 (08:24→20:04)
[2020-04-07] MEDS: Heparin 5,000 UNITS/ML VIAL SC SCH ×3 (08:24→20:09)
[2020-04-07] MEDS ORDERED: Potassium Phosphate 15 MMOL in Sodium Chloride 0.9% 250 ML 250 ML IVPB SCH (09:30)
[2020-04-07 10:48] LABS: HBSAB Concentration Less than 8.00 mIU/mL; HBSAg Index 0.21 S/CO (0-0.99); Hep B Surf AB Non-Reactive (NonReactive); Hep B Surf Ag Non-Reactive S/CO (NonReactive); Hep C IgG Ab Non-Reactive (NonReactive); Hep C Index 0.11 S/CO (0-0.79); Thyroid Stimulating Hormone 2.5776 uIU/mL (0.35-4.94)
--- NOTE | 2020-04-07 14:32 | ULT ---
Right upper quadrant ultrasound: 04/07/2020 COMPARISON: None HISTORY: Abnormal liver function tests TECHNIQUE: The planar grayscale sonographic imaging of the right upper quadrant provided. FINDINGS: The pancreas is obscured by bowel gas. No gallbladder wall thickening. No pericholecystic f luid or gallstones noted. The junior manufacturing engineer reports a negative Zapata's sign. Common bile duct measures 3 mm, within normal limits. No focal liver lesion. Right kidney measures 10.7 cm in craniocaudal dimension and contains numerous cysts, the largest in t he upper pole measuring 5.7 cm. IMPRESSION: No evidence for cholelithiasis, cholecystitis, or biliary dilatation.
[2020-04-07] MEDS ORDERED: hydrALAZINE 25 MG TAB PO SCH ×2 (15:00→21:00)
[2020-04-07] MEDS: hydrALAZINE 20 MG/ML VIAL SLOW IVP PRN (15:09)
--- NOTE | 2020-04-07 16:11 | CON ---
DATE OF CONSULTATION: 04/07/2020 REQUESTING PHYSICIAN: Bertrand Andre MD REASON FOR CONSULTATION: Elevated LFTs. HISTORY OF PRESENT ILLNESS: Ricci Hall is an 80-year-old gentleman who was admitted to the hospital a couple of days ago after presenting with inflammatory arthritis in the left knee and altered mental status. He reports no known history of prior liver disease or biliary disease. He does have a long history of heavy alcohol use, much heavier in the past, but still quite heavy, having at least 1 to 2 shots of whiskey on a nightly basis. Upon presentation, he was found to have a leukocytosis as well as elevated CK up to 1386 and very elevated CRP. Notably, AST was only mildly elevated at 42 and other LFTs were normal at that time. Over the past couple of days, he was empirically started on antibiotics while fluid was being analyzed. The fluid has come back more consistent with gouty arthritis. He was started on colchicine. His mental status has improved. CT imaging of the head was unremarkable. He had some degree of acute kidney injury, which has also improved. However, with this clinical improvement, he has had interval elevation in LFTs. This morning, AST has bumped up to 172, ALT 244, otherwise normal total bilirubin 0.6, and alkaline phosphatase 79. Viral hepatitis serologies are negative. Through all of this, he is not having any abdominal pain or nausea. He has not had any jaundice. He has not had any abdominal imaging. REVIEW OF SYSTEMS: Full review of systems including constitutional; head, eyes, ears, nose, and throat; GI; ; cardiovascular; respiratory; musculoskeletal; neurologic systems is negative except as noted in the HPI. PAST MEDICAL HISTORY: 1. Hypertension. 2. Hyperlipidemia. 3. Carotid stenosis. 4. Carotid artery stent. 5. Appendectomy. 6. Vasectomy. 7. Shoulder surgery. ALLERGIES: AMLODIPINE AND BENAZEPRIL. MEDICATIONS: Outpatient medications: 1. Zocor. 2. Omeprazole. 3. Multivitamin daily. 4. Metoprolol. 5. Lisinopril. 6. Glucosamine. 7. Gabapentin. 8. Aspirin. Inpatient medications: 1. Aspirin. 2. Clonidine p.r.n. 3. Colchicine 0.6 mg b.i.d. 4. Folic acid. 5. Gabapentin. 6. Hydralazine p.r.n. 7. Metoprolol. 8. Multivitamin. 9. Pantoprazole 40 mg daily. 10. Florastor. 11. Thiamine. 12. Vancomycin and meropenem have been discontinued. SOCIAL HISTORY: No smoking. Long history of alcohol abuse, currently has at least 1 or 2 glasses of whiskey every day. FAMILY HISTORY: Noncontributory. PHYSICAL EXAMINATION: VITAL SIGNS: Temperature 97.6, pulse 60, blood pressure 189/60, and 98% oxygen saturation on room air. GENERAL: Frail 80-year-old man, sitting up in bed comfortably, in no distress. MENTAL: Alert and fully oriented. Pleasant, conversational. SKIN: No jaundice. No rashes were palpable. EYES: No scleral icterus. Extraocular movements intact. ENT: Mucous membranes moist. No oral lesions. LYMPHATICS: No submandibular or supraclavicular lymphadenopathy. THYROID: Nontender to palpation. HEART: Regular rate and rhythm. LUNGS: Clear to auscultation bilaterally. ABDOMEN: Nondistended. Bowel sounds present. Soft and nontender to palpation throughout. EXTREMITIES: He has some warmth and edema of the knees bilaterally. No soft tissue edema. VESSELS: Radial pulses 2+ bilaterally. NEUROLOGIC: Cranial nerves 2 through 12 intact bilaterally. No focal deficits. LABORATORY STUDIES: WBC 10.8, hemoglobin is 12.0, and platelets 303. Sodium 138, potassium 3.2, BUN 31, creatinine 1.33, and glucose 290. CRP elevated to 26.67. CK elevated to 447. Total bilirubin 0.6, alkaline phosphatase 79, AST initially 37 and now up to 172, ALT initially 28 and now up to 244, and albumin is 2.7. TSH 2.57. Lipase 45. Folic acid 17.8 and vitamin B12 is 466. ASSESSMENT AND PLAN: 1. Elevated liver function tests, acute this hospitalization over the past couple of days. 2. Rhabdomyolysis. CK level downtrending. 3. Alcohol abuse. The patient has a long history of alcohol abuse and still quite heavy use with at least a couple of glasses of whiskey per day. 4. Altered mental status, now improved. The patient probably has some underlying alcoholic fatty liver disease, though interestingly, LFTs were near normal on admission and have more acutely spiked up. I do not see any evidence of liver dysfunction. He has normal platelets. Need to check INR level. It is possible that he has some degree of compensated cirrhosis. Consider also the possibility of acute drug-induced liver injury. He had initially been started on antibiotics, but these have been discontinued. Colchicine is also a new medication here. The rhabdomyolysis itself can be associated with elevation in the transaminases. Note, the negative viral hepatitis serologies. We will go ahead and further the liver lab workup with morning labs tomorrow to include INR, autoimmune markers, etc. Trend the LFTs. We will get an ammonia level as well. We will also order an abdominal ultrasound to evaluate the biliary system and liver parenchyma. GI will follow along for lab and ultrasound results. Thank you for the consultation. Please call anytime with questions or concerns. Job ID: [id number]
[2020-04-07] MEDS ORDERED: BEER 1 CAN PO SCH (17:00)
--- NOTE | 2020-04-07 17:29 | PDOC.HOSPP ---
- Subjective Encounter Date: 04/07/20 Encounter Time: 16:15 Subjective: Patient seen and examined for an altered mentation. Denies any new complaints. No chest pain shortness of breath fever chills reported. Left knee pain slowly improving. - Objective Vital Signs & Weight: Vital Signs (12 hours) Temp Pulse Resp BP BP Pulse Ox 04/07/20 15:09 53 L 185/64 H 04/07/20 15:05 53 L 185/64 H 04/07/20 13:28 97.6 F 53 L 15 185/64 H 94 L 04/07/20 12:00 97.6 F 04/07/20 08:23 60 189/60 H 04/07/20 08:00 97.6 F 60 14 189/60 H 98 Weight Weight 133 lb 6.075 oz I&O: 04/06/20 04/07/20 04/08/20 06:59 06:59 06:59 Intake Total 760 3560 440 Output Total 75 Balance 760 3485 440 Result Diagrams: 04/07/20 05:31 04/07/20 05:31 Additional Labs: Laboratory Tests 04/06/20 04/07/20 04/07/20 05:13 05:30 05:31 Phosphorus 2.2 L AST 72 H 172 H ALT 66 H 244 H Lipase 45 TSH 3rd Generation 04/07/20 09:53 Phosphorus AST ALT Lipase TSH 3rd Generation [id number] Hospitalist ROS - Review of Systems Respiratory: denies: cough, dry, shortness of breath, hemoptysis, SOB with excertion, pleuritic pain, sputum, wheezing, other Cardiovascular: denies: chest pain, palpitations, orthopnea, paroxysmal noc. dyspnea, edema, light headedness, other Gastrointestinal: denies: nausea, vomiting, abdominal pain, diarrhea, constipation, melena, hematochezia, other - Medication Medications: Active Medications Generic Name Dose Route Start Last Admin Trade Name Freq PRN Reason Stop Dose Admin Aspirin 81 mg 04/06/20 09:00 04/07/20 08:22 Ecotrin PO 81 mg DAILY HECTOR Administration Clonidine 0.1 mg 04/06/20 17:32 04/06/20 21:46 Catapres PO 0.1 mg Q4H PRN Administration SBP GREATER THAN 160 Colchicine 0.6 mg 04/05/20 21:00 04/07/20 08:22 Colchicine PO 0.6 mg BID HECTOR Administration Folic Acid 1 mg 04/05/20 09:00 04/07/20 08:22 Folvite PO 1 mg DAILY HECTOR Administration Gabapentin 200 mg 04/06/20 21:00 04/07/20 15:05 Neurontin PO 200 mg TID HECTOR Administration Heparin Sodium (Porcine) 5,000 units 04/06/20 09:00 04/07/20 09:50 Heparin SC Not Given BID HECTOR Hydralazine HCl 10 mg 04/05/20 19:27 04/07/20 15:09 Apresoline SLOW IVP 10 mg Q4H PRN Administration SBP GREATER THAN 160 Hydralazine HCl 25 mg 04/07/20 15:00 04/07/20 15:05 Apresoline PO 25 mg TID HECTOR Administration Metoprolol Tartrate 50 mg 04/05/20 21:00 04/07/20 08:24 Lopressor PO 50 mg BID HECTOR Administration Multivitamins 1 tab 04/05/20 09:00 04/07/20 08:21 Theragran PO 1 tab DAILY HECTOR Administration Pantoprazole Sodium 40 mg 04/06/20 09:00 04/07/20 08:21 Protonix PO 40 mg DAILY HECTOR Administration Saccharomyces Boulardii 250 mg 04/06/20 21:00 04/06/20 21:43 Florastor PO 250 mg HS HECTOR Administration Thiamine HCl 100 mg 04/05/20 09:00 04/07/20 08:23 Thiamine PO 100 mg DAILY HECTOR Administration - Exam General Appearance: NAD Neck: supple, no JVD Heart: RRR, no gallops Respiratory: no wheezes, no ronchi Gastrointestinal: non-tender, non-distended, normal bowel sounds, no guarding, no rigidity Extremities: no cyanosis, no clubbing Neurological: no new deficit Psychiatric: normal affect, A&O x 3 Hosp A/P - Plan DVT proph w/heparin, DVT proph w/SCDs Toxic metabolic and encephalopathy - multifactorial AURY on CKD 3/dehydrationimproving Left knee swelling with crystals due to acute gout gout. septic arthritis less likely Hypertension -uncontrolled Abnormal liver function test History of carotid stenosis Rhabdomyolysis Hyperlipidemia DO NOT RESUSCITATE Hypo-phosphatemia Hypokalemia Plan: 04/07 Liver functions are gradually worsening. Will check hepatitis B and C profile. Also consult gastroenterology. Mentation is improving. Increase Hydralazine due to elevated BP. Continue colchicine for gout flare. Replace potassium and phosphorus. Continue physical therapy. Patient is declining intermediate facility or rehab at this time. Will consult gearcase assembler for home health care. Blood cultures at [facility] were reviewed and are negative so far. WBC counts are back to normal today We will recheck labs in a.m. Continue other home medications. Plan was discussed with the patient and the son. 04/06 Mentation is significantly improving Renal function has improved Continue metoprolol Add hydralazine due to uncontrolled blood pressure Add clonidine as needed for elevated blood pressure Continue thiamine folic acid and multivitamin Monitor for alcohol withdrawal CK is improving MATT inhibitor on hold due to AURY Increase gabapentin to 200 mg 3 times a day Discontinue IV fluids Blood cultures are pending at [facility]. Recheck labs in a.m. Add 1 beer every afternoon due to high risk of alcohol withdrawal Continue physical therapy occupational therapy evaluation manager cardiac cath consultation for home health care versus inpatient rehab evaluation. Called son with no answer [phone]. Both the numbers on the face sheet are probably incorrect.
[2020-04-07] MEDS: cloNIDine 0.1 MG TAB PO SCH ×2 (18:18→18:28)
[2020-04-07] MEDS: Saccharomyces boulardii 250 MG CAP PO SCH (20:04)
[2020-04-07] MEDS ORDERED: cloNIDine 0.1 MG TAB PO SCH (21:00)
[2020-04-08 04:16] LABS: #Eosinphils 0.3 thou/uL (0.0-0.7); #Lymphocytes 1.8 thou/uL (1.20-3.40); #Monocytes 1.3 thou/uL (0.11-0.59); #Neutrophils 8.1 thou/uL (1.40-6.50); %Basophils 0.3 % (0.0-1.0); %Eosinophils 2.6 % (0.0-10.0); %Lymphocytes 15.8 % (21.0-51.0); %Monocytes 11.6 % (0.0-10.0); %Neutrophils 69.8 % (42.0-75.0); Hemoglobin 13.9 g/dL (14.0-18.0); Mean Corpuscular HGB CONC 31.9 g/dL (32.0-36.0); Mean Corpuscular Hemoglobin 32.2 pg (27.0-31.0); Mean Platelet Volume 8.3 fL (7.4-10.4); Platelet Count 360 thou/uL (130-400); RBC Distribution Width 11.6 % (11.5-14.5); Red Blood Cell (RBC) Count 4.33 mill/uL (4.70-6.10); White Blood Cell (WBC) Count 11.6 thou/uL (4.8-10.8)
[2020-04-08 04:20] LABS: Prothrombin Time 12.8 sec (12.0-14.7)
[2020-04-08 04:42] LABS: ALT (SGPT) 177 U/L (8-55); AST (SGOT) 56 U/L (5-34); Acetaminophen Less than 6.0 mcg/mL (10.0-30.0); Alkaline Phosphatase 98 U/L (40-110); Anion Gap 12 mmol/L (10-20); BUN (Urea Nitrogen) 31 mg/dL (8.4-25.7); Bilirubin, Total 0.4 mg/dL (0.2-1.2); Calc. Creatinine Clearance 37 mL/min (70-130); Calcium 8.1 mg/dL (7.8-10.44); Carbon Dioxide 22 mmol/L (23-31); Chloride 111 mmol/L (98-107); Estimated GFR-MDRD 51; Globulin 2.9 g/dL (2.4-3.5); Glucose 91 mg/dL (83-110); Iron 34 ug/dL (65-175); Iron Binding Capacity, Total 174 mcg/dL (261-462); Magnesium 2.2 mg/dL (1.6-2.6); Phosphorus 3.1 mg/dL (2.3-4.7); Potassium 3.7 mmol/L (3.5-5.1); Protein, Total 5.9 g/dL (5.8-8.1); Sodium 141 mmol/L (136-145)
[2020-04-08] MEDS: Aspirin 81 mg Enteric Coated Tablet PO SCH (08:18)
[2020-04-08] MEDS: Colchicine 0.6 MG TAB PO SCH ×2 (08:18→20:05)
[2020-04-08] MEDS: Metoprolol Tartrate 50 MG TAB PO SCH ×2 (08:19→20:14)
[2020-04-08] MEDS: Multivit, Therapeutic 1 TAB PO SCH (08:19)
[2020-04-08] MEDS: Gabapentin 100 MG CAP PO SCH ×3 (08:19→20:05)
[2020-04-08] MEDS: Thiamine 100 MG TAB PO SCH (08:19)
[2020-04-08] MEDS: Folic Acid 1 MG TAB PO SCH (08:19)
[2020-04-08] MEDS: hydrALAZINE 25 MG TAB PO SCH ×3 (08:19→20:05)
[2020-04-08] MEDS: Heparin 5,000 UNITS/ML VIAL SC SCH ×2 (08:20→20:06)
--- NOTE | 2020-04-08 11:52 | PRG ---
DATE OF SERVICE: 04/08/2020 SUBJECTIVE: Mr. Hall is feeling okay. He still has some knee pain. No abdominal pain or nausea. He is tolerating his diet. Mental status seems pretty clear today. He is conversing appropriately. OBJECTIVE: VITAL SIGNS: Temperature 97.6, pulse 55, blood pressure 147/65, and 96% oxygen saturation on room air. GENERAL: No acute distress, sitting up in bed comfortably. HEART: Regular rate and rhythm. LUNGS: Clear to auscultation bilaterally. ABDOMEN: Bowel sounds present. Soft and nontender to palpation. EXTREMITIES: No peripheral edema. LABORATORY STUDIES: WBC 11.6, hemoglobin 13.9, and platelets 360. INR normal at 1.0. Sodium 141, potassium 3.7, BUN 31, and creatinine 1.35. LFTs have improved a bit. Total bilirubin 0.4, alkaline phosphatase 98, AST down to 56, and ALT down to 177. Ammonia 26. TSH 2.57. Acetaminophen level is undetectable. Viral hepatitis serologies negative. Still awaiting ANTONIETA, ASMA, and AMA. Iron low at 34, TIBC low at 174, consistent with chronic disease and acute inflammatory state. IMAGING STUDIES: Abdominal ultrasound showed normal-appearing gallbladder and common bile duct of only 3 mm. There is no evidence of cholelithiasis or pericholecystic fluid. ASSESSMENT/PLAN: 1. Elevated transaminases, acute this hospitalization, but trending down today. 2. Rhabdomyolysis, CK level downtrending. 3. Alcohol abuse. The patient has a long history of heavy alcohol abuse and still having a couple of alcoholic beverages per day. 4. Altered mental status, now improved. Transaminases trended down today, which is encouraging. Note the negative ultrasound, negative viral hepatitis serologies. 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 Cannot rule out some degree of acute drug-induced liver injury from the antibiotics that he received, but these have been discontinued and LFTs are downtrending. I see no evidence of cirrhosis, as he has normal platelet count, normal INR. GI will sign off at this time. We will follow up autoimmune markers when they are available. We will plan to see him back in the GI/liver clinic on an outpatient basis in 3 to 4 weeks, with repeat LFTs at that time. In the meantime, I advised the patient that he would do better to completely quit all alcohol going forward. He expresses understanding, but probably is not going to quit drinking. Job ID: [id number]
--- NOTE | 2020-04-08 17:32 | PDOC.HOSPP ---
- Subjective Encounter Date: 04/08/20 Encounter Time: 16:00 Subjective: Patient seen and examined for confusion with rhabdomyolysis, acute kidney injury and abnormal LFTs. Mentation has significantly improved. Left knee swelling and pain are slowly improving. - Objective Vital Signs & Weight: Vital Signs (12 hours) Temp Pulse Resp BP BP Pulse Ox 04/08/20 16:00 135/60 04/08/20 15:05 55 L 147/65 H 04/08/20 12:00 147/65 H 04/08/20 08:19 55 L 147/65 H 04/08/20 08:00 147/65 H 04/08/20 07:18 97.6 F 55 L 18 147/65 H 96 Weight Weight 133 lb 6.075 oz I&O: 04/07/20 04/08/20 04/09/20 06:59 06:59 06:59 Intake Total 3560 2090 Output Total 75 Balance 3485 2090 Result Diagrams: 04/08/20 04:06 04/08/20 04:06 Additional Labs: Laboratory Tests 04/08/20 04/08/20 04/08/20 04:06 04:06 04:06 Iron 34 L TIBC 174 L Ferritin 559.51 H AST 56 H ALT 177 H Ammonia 26 Radiology Reviewed by me: No (Right upper quadrant ultrasoundno acute pathology ) Hospitalist ROS - Review of Systems Cardiovascular: denies: chest pain, palpitations, orthopnea, paroxysmal noc. dyspnea, edema, light headedness, other Gastrointestinal: denies: nausea, vomiting, abdominal pain, diarrhea, constipation, melena, hematochezia, other - Medication Medications: Active Medications Generic Name Dose Route Start Last Admin Trade Name Freq PRN Reason Stop Dose Admin Aspirin 81 mg 04/06/20 09:00 04/08/20 08:18 Ecotrin PO 81 mg DAILY HECTOR Administration Clonidine 0.1 mg 04/06/20 17:32 04/06/20 21:46 Catapres PO 0.1 mg Q4H PRN Administration SBP GREATER THAN 160 Colchicine 0.6 mg 04/05/20 21:00 04/08/20 08:18 Colchicine PO 0.6 mg BID HECTOR Administration Folic Acid 1 mg 04/05/20 09:00 04/08/20 08:19 Folvite PO 1 mg DAILY HECTOR Administration Gabapentin 200 mg 04/06/20 21:00 04/08/20 15:04 Neurontin PO 200 mg TID HECTOR Administration Heparin Sodium (Porcine) 5,000 units 04/06/20 09:00 04/08/20 08:20 Heparin SC 5,000 units BID HECTOR Administration Hydralazine HCl 10 mg 04/05/20 19:27 04/07/20 15:09 Apresoline SLOW IVP 10 mg Q4H PRN Administration SBP GREATER THAN 160 Hydralazine HCl 50 mg 04/07/20 21:00 04/08/20 15:05 Apresoline PO 50 mg TID HECTOR Administration Metoprolol Tartrate 50 mg 04/05/20 21:00 04/08/20 08:19 Lopressor PO 50 mg BID HECTOR Administration Multivitamins 1 tab 04/05/20 09:00 04/08/20 08:19 Theragran PO 1 tab DAILY HECTOR Administration Pantoprazole Sodium 40 mg 04/06/20 09:00 04/08/20 08:19 Protonix PO 40 mg DAILY HECTOR Administration Saccharomyces Boulardii 250 mg 04/06/20 21:00 04/07/20 20:04 Florastor PO 250 mg HS HECTOR Administration Thiamine HCl 100 mg 04/05/20 09:00 04/08/20 08:19 Thiamine PO 100 mg DAILY HECTOR Administration - Exam General Appearance: NAD Heart: RRR, no gallops Respiratory: no wheezes, no ronchi Gastrointestinal: non-tender, normal bowel sounds, no guarding, no rigidity Psychiatric: normal affect, A&O x 3 Hosp A/P - Plan DVT proph w/SCDs Toxic metabolic and encephalopathy - multifactorial AURY on CKD 3/dehydrationimproving Left knee swelling with crystals due to acute gout gout. Septic arthritis ruled out Hypertension -uncontrolled Abnormal liver function test Chronic alcoholism. Patient was extensively counseled History of carotid stenosis Rhabdomyolysis Hyperlipidemia DO NOT RESUSCITATE Hypo-phosphatemia Hypokalemia Plan: 04/08 Liver function started to improve. Hepatitis B and C were ruled out. Gastroenterology input was appreciated. Recheck LFTs in a.m. Continue colchicine. Continue current antihypertensive medications. Home health care has been arranged. Will discharge patient in a.m. if no acute issues. Patient still unable to ambulate due to significant left knee pain especially when weightbearing. Plan of care was discussed with the patient and the son 04/07 Liver functions are gradually worsening. Will check hepatitis B and C profile. Also consult gastroenterology. Mentation is improving. Increase Hydralazine due to elevated BP. Continue colchicine for gout flare. Replace potassium and phosphorus. Continue physical therapy. Patient is declining senior care facility or rehab at this time. Will consult case management assistant for home health care. Blood cultures at [facility] were reviewed and are negative so far. WBC counts are back to normal today We will recheck labs in a.m. Continue other home medications. Plan was discussed with the patient and the son. 04/06 Mentation is significantly improving Renal function has improved Continue metoprolol Add hydralazine due to uncontrolled blood pressure Add clonidine as needed for elevated blood pressure Continue thiamine folic acid and multivitamin Monitor for alcohol withdrawal CK is improving MATT inhibitor on hold due to AURY Increase gabapentin to 200 mg 3 times a day Discontinue IV fluids Blood cultures are pending at [facility]. Recheck labs in a.m. Add 1 beer every afternoon due to high risk of alcohol withdrawal Continue physical therapy occupational therapy evaluation district wildlife manager consultation for home health care versus inpatient rehab evaluation. Called son with no answer [phone]. Both the numbers on the face sheet are probably incorrect.
[2020-04-08] MEDS: Saccharomyces boulardii 250 MG CAP PO SCH (20:05)
[2020-04-09] MEDS: Folic Acid 1 MG TAB PO SCH (08:01)
[2020-04-09] MEDS: Colchicine 0.6 MG TAB PO SCH (08:01)
[2020-04-09] MEDS: Multivit, Therapeutic 1 TAB PO SCH (08:01)
[2020-04-09] MEDS: Gabapentin 100 MG CAP PO SCH ×2 (08:01→15:38)
[2020-04-09] MEDS: hydrALAZINE 25 MG TAB PO SCH (08:01)
[2020-04-09] MEDS: Aspirin 81 mg Enteric Coated Tablet PO SCH (08:01)
[2020-04-09] MEDS: Thiamine 100 MG TAB PO SCH (08:02)
[2020-04-09] MEDS: Metoprolol Tartrate 50 MG TAB PO SCH (08:02)
[2020-04-09] MEDS: Heparin 5,000 UNITS/ML VIAL SC SCH (08:02)
[2020-04-09 09:32] VITALS: TEMP 98.1
[2020-04-09 12:27] VITALS: BP 135/62
--- NOTE | 2020-04-09 19:15 | PDOC.HOSPP ---
- Subjective Encounter Date: 04/09/20 Encounter Time: 09:00 Subjective: Patient seen and examined for generalized weakness with confusion. Mentation at baseline. Patient denies any vomiting diarrhea at this time. No fever or chills. - Objective Vital Signs & Weight: Vital Signs (12 hours) Temp Pulse Resp BP BP Pulse Ox 04/09/20 12:00 135/62 04/09/20 08:01 68 134/77 04/09/20 08:00 98.1 F 70 18 134/77 134/77 98 Weight Weight 133 lb 6.075 oz I&O: 04/08/20 04/09/20 04/10/20 06:59 06:59 06:59 Intake Total 2089 Balance 2089 400 Result Diagrams: 04/08/20 04:06 04/08/20 04:06 Hospitalist ROS - Review of Systems Respiratory: denies: cough, dry, shortness of breath, hemoptysis, SOB with excertion, pleuritic pain, sputum, wheezing, other Cardiovascular: denies: chest pain, palpitations, orthopnea, paroxysmal noc. dyspnea, edema, light headedness, other - Exam General Appearance: NAD Heart: RRR, no gallops Respiratory: no wheezes, no ronchi Gastrointestinal: non-tender, normal bowel sounds Extremities: no cyanosis, no clubbing Neurological: no new deficit Musculoskeletal: normal tone Musculoskeletal - other findings: Improving swelling and tenderness over the left knee Hosp A/P - Plan DVT proph w/SCDs Toxic metabolic and encephalopathy - multifactorial AURY on CKD 3/dehydrationimproving Left knee swelling with crystals due to acute gout gout. Septic arthritis ruled out Hypertension -uncontrolled Abnormal liver function test Chronic alcoholism. Patient was extensively counseled History of carotid stenosis Rhabdomyolysis Hyperlipidemia DO NOT RESUSCITATE Hypo-phosphatemia Hypokalemia Plan: 04/09 Continue colchicine. Liver function tests improving. Patient is significantly weak and not safe for discharge home with home health care. Will consult keycase assembler for inpatient rehab evaluation. Continue other medications. Patient was counseled on alcohol cessation. 04/08 Liver function started to improve. Hepatitis B and C were ruled out. Gastroenterology input was appreciated. Recheck LFTs in a.m. Continue colchicine. Continue current antihypertensive medications. Home health care has been arranged. Will discharge patient in a.m. if no acute issues. Patient still unable to ambulate due to significant left knee pain especially when weightbearing. Plan of care was discussed with the patient and the son 04/07 Liver functions are gradually worsening. Will check hepatitis B and C profile. Also consult gastroenterology. Mentation is improving. Increase Hydralazine due to elevated BP. Continue colchicine for gout flare. Replace potassium and phosphorus. Continue physical therapy. Patient is declining jail facility or rehab at this time. Will consult keycase assembler for home health care. Blood cultures at [facility] were reviewed and are negative so far. WBC counts are back to normal today We will recheck labs in a.m. Continue other home medications. Plan was discussed with the patient and the son. 04/06 Mentation is significantly improving Renal function has improved Continue metoprolol Add hydralazine due to uncontrolled blood pressure Add clonidine as needed for elevated blood pressure Continue thiamine folic acid and multivitamin Monitor for alcohol withdrawal CK is improving MATT inhibitor on hold due to AURY Increase gabapentin to 200 mg 3 times a day Discontinue IV fluids Blood cultures are pending at [facility]. Recheck labs in a.m. Add 1 beer every afternoon due to high risk of alcohol withdrawal Continue physical therapy occupational therapy evaluation manager paper consultation for home health care versus inpatient rehab evaluation. Called son with no answer [phone]. Both the numbers on the face sheet are probably incorrect.
--- NOTE | 2020-04-10 13:25 | DIS ---
DATE OF ADMISSION: 04/05/2020 DATE OF DISCHARGE: 04/09/2020 DISCHARGE DISPOSITION: Inpatient rehabilitation. The patient was seen and examined on the day of discharge. Please refer to my progress note for details. DISCHARGE MEDICATIONS: 1. Colchicine 0.6 mg twice daily for next 1 to 2 weeks. Gradually taper and eventually discontinue. 2. Folic acid 1 mg daily. 3. Thiamine 100 mg daily. 4. Multivitamin one tablet daily. 5. Hydralazine 50 mg 3 times a day. All other home medications were left unchanged. BRIEF HOSPITAL COURSE: The patient is an 80-year-old male, who presented to [facility] on April 05, 2020, with altered mentation. He was found by his son, sitting on a recliner with altered mentation with lethargy. His speech was garbled. The son brought him to [facility]. After IV fluids, his mentation gradually improved in the emergency room. At [facility], he underwent an arthrocentesis that was concerning for gout. He was started on empiric antibiotics and was transferred to this facility. WBC count was 20,000 with elevated CRP. COVID was ruled out. His temperature in the emergency room was 99.6. Please refer to the history and physical for further details. The patient was admitted to the hospital with a diagnosis of toxic-metabolic encephalopathy, multifactorial along with acute kidney injury. He was evaluated by Orthopaedic as well as Infectious Disease. His workup was consistent with acute gout flare. The antibiotics were later discontinued. His symptoms improved with colchicine. He continued to have significant pain in the knee. Due to generalized weakness along with left knee pain, he was referred to inpatient rehabilitation. The patient was found to have gradually worsening LFTs. His initial LFTs showed AST of 37 with ALT of 28 and alkaline phosphatase 68. Later on, it started to worsen with AST of 172, ALT of 244. The patient was evaluated by Gastroenterology Service. He had extensive workup including right upper quadrant ultrasound that was negative for acute findings. The acute hepatitis profile was ruled out. Tylenol level was less than 6. His ferritin was 559 with ammonia of 26, TSH of 2.5. His LFTs gradually started improving by itself. He was advised to follow up with Gastroenterology Service as outpatient. There is some testing including mitochondrial antibody, smooth muscle antibody, and ANTONIETA, which is pending at the time of discharge. FINAL DIAGNOSES: 1. Toxic-metabolic encephalopathy, resolved. 2. Acute kidney injury on chronic kidney disease, stage 3, probably secondary to poor oral intake. His creatinine is improving. 3. Left knee swelling with crystals consistent with acute gout flare. 4. Hypertension, uncontrolled. Hydralazine was started. 5. Abnormal LFTs of unclear etiology, improving. 6. Chronic alcoholism. The patient was counseled. 7. History of carotid stenosis. Primary care physician advised to follow. 8. Rhabdomyolysis, improving. 9. Hyperlipidemia. 10. Hypokalemia. 11. Hypophosphatemia. 12. Moderate protein energy malnutrition-present on admission. Time coordinating the discharge of this patient was 33 minutes. He was extensively counseled on alcohol cessation. Job ID: [id number]
== END 2020-04-09 18:22 | DRG 553 ==
LOC: ERS 23:53 → T4-B 04-05 00:39
PROVIDERS: ADMIT Internal Medicine; ATTEND Internal Medicine
DX: M10.9 Gout, unspecified (principal); G92 Toxic encephalopathy; N17.9 Acute kidney failure, unspecified; M62.82 Rhabdomyolysis; E44.0 Moderate protein-calorie malnutrition; Z68.1 Body mass index [BMI] 19.9 or less, adult; Z66 Do not resuscitate; N18.3 Chronic kidney disease, stage 3 (moderate); I12.9 Hypertensive chronic kidney disease with stage 1 through stage 4 chronic kidney disease, or unspecified chronic kidney disease; R94.5 Abnormal results of liver function studies; F10.20 Alcohol dependence, uncomplicated; E78.5 Hyperlipidemia, unspecified; E87.6 Hypokalemia; E83.39 Other disorders of phosphorus metabolism; M25.462 Effusion, left knee; E86.0 Dehydration; Z28.21 Immunization not carried out because of patient refusal; Z90.49 Acquired absence of other specified parts of digestive tract; Z88.8 Allergy status to other drugs, medicaments and biological substances; Z79.899 Other long term (current) drug therapy; Z79.82 Long term (current) use of aspirin
CPT/HCPCS: 36415; 76705; 80053; 80307; 82140; 82550; 82607; 82728; 82746; 83516; 83540; 83550; 83605; 83690; 83735; 83880; 84100; 84443; 84484; 85025; 85610; 86038; 86140; 86225; 86706; 86803; 87340; 93005; 93010; 93970; 95712; 95816; 95819; 95957; 99285; J0360; J1644; J2185; J3370; J7042; J7050